=== PATIENT | male | born 1970 | race Caucasian/White ===

== ENCOUNTER 2016-10-27 14:50 | Outpatient (CLI) ==
[2015-11-22 18:52] VITALS: BMI 22.4
[2016-10-27 15:12] LABS: BASOPHILS # (AUTO) 0.1 K/uL (0-0.2); BASOPHILS % (AUTO) 0.8 % (0.0-3.0); EOSINOPHILS # (AUTO) 0.1 K/ul (0.0-0.7); EOSINOPHILS % (AUTO) 1.8 % (0.0-7.0); HEMATOCRIT 45.6 % (42.0-52.0); HEMOGLOBIN 15.5 g/dl (14.0-18.0); IMMATURE GRANULOCYTE % (AUTO) 0.2 % (0.0-5.0); LYMPHOCYTES # (AUTO) 2.1 K/uL (0.60-3.4); LYMPHOCYTES % (AUTO) 34.9 (10.0-50.0); MEAN CORPUSCULAR HEMOGLOBIN 33.4 pg (27.0-31.0); MEAN CORPUSCULAR VOLUME 98.3 fl (80.0-94.0); MONOCYTES # (AUTO) 0.7 K/uL (0.4-2.0); NEUTROPHILS % (AUTO) 50.3; PLATELET COUNT 199 10^3/uL (140-440); RED BLOOD COUNT 4.64 10^6/ul (4.70-6.10); WHITE BLOOD COUNT 5.99 K/ul (4.2-10.2)
[2016-10-27 15:26] LABS: ALBUMIN 4.3 g/dL (3.4-5.0); ALBUMIN/GLOBULIN RATIO 0.9; ANION GAP 15.9; BILIRUBIN,TOTAL 0.4 mg/dL (0.00-1.20); BUN/CREATININE RATIO 8.75; CALCIUM 9.8 mg/dL (8.2-10.2); CHOL/HDL RATIO 5.4 (4.5-6.4); CREATININE 0.8 mg/dL (0.60-1.10); POTASSIUM 3.9 mmol/L (3.5-5.1); TOTAL PROTEIN 9.1 g/dL (6.4-8.2)
--- NOTE | 2016-10-27 16:30 | DI ---
EXAM: Radiographs, right shoulder HISTORY: Right shoulder pain. COMPARISON: None available. TECHNIQUE: Four views. FINDINGS: Bone mineralization is normal. There is lucency through the cortex of the greater tubero sity of the humerus. No dislocation identified. The joint spaces are maintained. No focal soft ti ssue abnormality is seen. IMPRESSION: Suspect nondisplaced greater tuberosity fracture.
== END 2016-10-27 14:51 | disposition home or self-care (01) ==
LOC: RAD 14:50
PROVIDERS: ATTEND Nurse Practitioner Family
DX: E78.5 Hyperlipidemia, unspecified (principal); F10.10 Alcohol abuse, uncomplicated; I10 Essential (primary) hypertension; M79.671 Pain in right foot; M25.511 Pain in right shoulder
CPT/HCPCS: 36415; 80053; 80061; 80074; 85025

== ENCOUNTER 2016-10-28 13:59 | Outpatient (CLI) ==
[2015-11-22 18:52] VITALS: BMI 22.4
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
== END 2016-10-28 14:00 | disposition home or self-care (01) ==
LOC: RAD 13:59
PROVIDERS: ATTEND Nurse Practitioner Family
DX: M79.671 Pain in right foot (principal)

== ENCOUNTER 2016-11-04 16:53 | Emergency (ER) ==
[2016-11-04 17:06] VITALS: BP 147/87; TEMP 96.3; BMI 23.0
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
== END 2016-11-04 18:13 | disposition home or self-care (01) ==
LOC: ED 16:53
DX: M25.511 Pain in right shoulder (principal); M79.671 Pain in right foot; S92.901D Unspecified fracture of right foot, subsequent encounter for fracture with routine healing; S42.301D Unspecified fracture of shaft of humerus, right arm, subsequent encounter for fracture with routine healing; W10.9XXD Fall (on) (from) unspecified stairs and steps, subsequent encounter; F17.210 Nicotine dependence, cigarettes, uncomplicated
CPT/HCPCS: 99283

== ENCOUNTER 2017-05-07 13:21 | Outpatient (CLI) ==
[2017-05-07 13:38] LABS: BASOPHILS # (AUTO) 0.1 K/uL (0-0.2); EOSINOPHILS # (AUTO) 0.2 K/ul (0.0-0.7); EOSINOPHILS % (AUTO) 2.4 % (0.0-7.0); HEMATOCRIT 40.9 % (42.0-52.0); HEMOGLOBIN 13.9 g/dl (14.0-18.0); IMMATURE GRANULOCYTE % (AUTO) 0.3 % (0.0-5.0); LYMPHOCYTES # (AUTO) 1.7 K/uL (0.60-3.4); LYMPHOCYTES % (AUTO) 23.7 (10.0-50.0); MEAN CORPUSCULAR VOLUME 88.1 fl (80.0-94.0); MONOCYTES # (AUTO) 0.6 K/uL (0.4-2.0); MONOCYTES % (AUTO) 7.9 (0-10); NEUTROPHILS # (AUTO) 4.8 K/ul (2.0-6.9); NEUTROPHILS % (AUTO) 64.7; PLATELET COUNT 146 10^3/uL (140-440); RED BLOOD COUNT 4.64 10^6/ul (4.70-6.10); WHITE BLOOD COUNT 7.35 K/ul (4.2-10.2)
[2017-05-07 14:18] LABS: ALBUMIN 3.9 g/dL (3.4-5.0); ALBUMIN/GLOBULIN RATIO 1.03; ANION GAP 15.3; BILIRUBIN,TOTAL 0.47 mg/dL (0.00-1.20); BUN/CREATININE RATIO 19.28; CHOL/HDL RATIO 4.6 (4.5-6.4); CREATININE 1.4 mg/dL (0.60-1.10); POTASSIUM 5.3 mmol/L (3.5-5.1); TOTAL PROTEIN 7.7 g/dL (6.4-8.2)
== END 2017-05-07 13:22 | disposition home or self-care (01) ==
LOC: LAB 13:21
PROVIDERS: ATTEND Internal Medicine
DX: E78.5 Hyperlipidemia, unspecified (principal); I10 Essential (primary) hypertension; E11.9 Type 2 diabetes mellitus without complications; M19.90 Unspecified osteoarthritis, unspecified site; I82.409 Acute embolism and thrombosis of unspecified deep veins of unspecified lower extremity
CPT/HCPCS: 36415; 80053; 80061; 83036; 84443; 85025

== ENCOUNTER 2018-04-29 12:43 | Outpatient (CLI) | END 2018-04-29 12:44 | disposition home or self-care (01) | LOC: RHC-LAB 12:43 | PROVIDERS: ATTEND Nurse Practitioner Family | DX: Z00.00 Encounter for general adult medical examination without abnormal findings (principal); Z72.0 Tobacco use | CPT/HCPCS: 36415; 80053; 80061; 84443; 85025 ==

== ENCOUNTER 2018-05-03 07:56 | Outpatient (CLI) ==
--- NOTE | 2018-05-03 10:19 | CT ---
Exam: CT of the chest with intravenous contrast. Comparison: 02/27/2016. Reason for exam: Solitary pulmonary nodule. FINDINGS: No pneumothorax, pleural effusion, or focal consolidation. The heart is not enlarged. The aorta is normal in course and caliber. Similar appearing 2 mm nodule in the left upper lobe on axial image number 35 and a similar appearing 4 mm nodule in the right middle lobe on axial image number 46. No new nodularity is seen. Tree in b ud and ground-glass opacities are seen in the left lung base. Atherosclerotic disease is seen within the aorta and distal arterial vasculature. Nonspecific calcifications are seen in the region of the pancreatic body incompletely evaluated on th is exam. No suspicious appearing osteoblastic or osteolytic lesion. Old left-sided rib fractures. Impression: 1. Similar appearing micronodules in the left upper and right middle lobes as described above. 2. New tree in bud and ground-glass opacities in left lung base likely inflammatory or early infecti on. Follow-up imaging is recommended to document resolution. 3. Nonspecific calcifications are seen in the region of the mid pancreatic body incompletely evaluat ed on this exam. If clinical concern exists, further evaluation may be performed.
== END 2018-05-03 07:57 | disposition home or self-care (01) ==
LOC: RAD 07:56
PROVIDERS: ATTEND Nurse Practitioner Family
DX: R91.1 Solitary pulmonary nodule (principal); R05 Cough; Z72.0 Tobacco use